=== PATIENT | female | born 1990 ===

== ENCOUNTER 2022-04-21 03:14 | Outpatient (CLI) | payer BC, SELFPAY ==
[2022-04-21 12:24] LABS: Glucose 1 Hour 166 mg/dL
[2022-04-21 14:09] LABS: Glucose 3 Hour 127 mg/dL
== END 2022-04-21 03:15 | disposition home or self-care (01) ==
DX: R73.09 Other abnormal glucose (principal)
CPT/HCPCS: 36415; 82951

== ENCOUNTER 2024-06-06 14:20 | Outpatient (CLI) | payer BC, SELFPAY ==
[2024-06-06 17:57] LABS: HCG Quant, Pregnancy 3253 mIU/mL (1-3)
== END 2024-06-06 14:21 | disposition home or self-care (01) ==
LOC: LBO 14:20
PROVIDERS: Visit Provider Advanced Practice Midwife
DX: Z34.91 Encounter for supervision of normal pregnancy, unspecified, first trimester (principal)
CPT/HCPCS: 36415; 84702

== ENCOUNTER 2024-06-15 13:04 | Outpatient (CLI) | payer BC, SELFPAY ==
[2024-06-15 13:07] LABS: HCG Quant, Pregnancy 31697 mIU/mL (1-3)
== END 2024-06-15 13:05 | disposition home or self-care (01) ==
LOC: LBO 13:04
PROVIDERS: Visit Provider Advanced Practice Midwife
DX: Z34.91 Encounter for supervision of normal pregnancy, unspecified, first trimester (principal)
CPT/HCPCS: 36415; 84702

== ENCOUNTER 2024-11-18 00:53 | Outpatient (CLI) | payer BC, SELFPAY ==
[2024-11-18 08:54] LABS: Glucose 1 Hour 165 mg/dL
== END 2024-11-18 00:54 | disposition home or self-care (01) ==
LOC: LBO 00:53
PROVIDERS: Visit Provider Advanced Practice Midwife
DX: Z34.80 Encounter for supervision of other normal pregnancy, unspecified trimester (principal)
CPT/HCPCS: 36415; 82951